=== PATIENT | male | born 1965 | race Caucasian/White ===

== ENCOUNTER 2019-06-12 07:40 | Day surgery (SDC) | payer OTHER ==
[2019-06-11 10:54] VITALS: BMI 35.9
[~2019-06-12 07:40] MED LIST: LACTATED RINGERS 1,000 ML IV SCH
[2019-06-12 07:58] VITALS: TEMP 97.1
[2019-06-12] MEDS ORDERED: LIDOCAINE 1% 20 ML VIAL (10MG/ML) FOR IV START INTRADERMA ONE (08:02)
[2019-06-12] MEDS ORDERED: PROPOFOL 10 MG/ML 20 ML VIAL IV ONE (08:35)
--- NOTE | 2019-06-12 08:47 | P.GSHP ---
History of Present Illness H&P Date: 06/12/19 Chief Complaint: screening colonoscopy this a 53-year-old male who presents today for screening colonoscopy. Patient denies any significant GI complaints. Past Medical History Past Medical History: Hypertension, Thyroid Disorder Additional Past Medical History / Comment(s): PAST HX POLYPS History of Any Multi-Drug Resistant Organisms: None Reported Past Surgical History: Orthopedic Surgery Additional Past Surgical History / Comment(s): COLONOSCOPY W/5 POLYPS REMOVED,RT ROTATOR CUFF REPAIR Past Anesthesia/Blood Transfusion Reactions: No Reported Reaction Smoking Status: Never smoker Medications and Allergies Home Medications Medication Instructions Recorded Confirmed Type Levothyroxine Sodium [Synthroid] 75 mcg PO DAILY 09/08/14 06/12/19 History Magnesium Oxide [Mag-Ox] 400 mg PO DAILY 09/08/14 06/12/19 History Losartan Potassium [Cozaar] 50 mg PO DAILY 06/11/19 06/12/19 History Allergies Allergy/AdvReac Type Severity Reaction Status Date / Time No Known Allergies Allergy Verified 06/11/19 10:51 Surgical - Exam Vital Signs Temp Pulse Resp BP Pulse Ox 97.1 F L 74 16 147/91 95 06/12/19 07:51 06/12/19 07:51 06/12/19 07:51 06/12/19 07:51 06/12/19 07:51 - General well developed, well nourished, no distress - Eyes PERRL - ENT normal pinna - Neck no masses - Respiratory normal expansion - Cardiovascular Rhythm: regular - Abdomen Abdomen: soft, non tender Assessment and Plan Assessment: we'll perform screening colonoscopy
--- NOTE | 2019-06-12 08:57 | P.OP ---
Date of Procedure: 06/12/19 Preoperative Diagnosis: screening colonoscopy Postoperative Diagnosis: normal colon Procedure(s) Performed: colonoscopy Anesthesia: MAC Surgeon: Simba Evans Pathology: none sent Condition: stable Disposition: PACU Description of Procedure: PROCEDURE: The patient was placed on the endoscopy table in the lateral position. Digital rectal examination was performed which revealed no abnormalities. The prostate was symmetrical without nodules. Flexible colonoscope was then placed in the patient's anus and passed throughout the entire colon. The ileocecal valve was visualized. The cecum, ascending, transverse, descending and sigmoid colon were normal. The rectum was normal as well. There were no masses, polyps or diverticula noted in the entire colon. SUMMARY OF FINDINGS: Normal colonoscopy.
[2019-06-12 09:14] VITALS: BP 126/85; PULSE 71; RESP 20
== END 2019-06-12 09:44 | disposition home or self-care (01) ==
LOC: ORWHC2ENDO 07:40
PROVIDERS: ATTEND Surgery
DX: Z12.11 Encounter for screening for malignant neoplasm of colon (principal); I10 Essential (primary) hypertension; E07.9 Disorder of thyroid, unspecified; Z86.010 Personal history of colon polyps; Z98.890 Other specified postprocedural states; Z79.890 Hormone replacement therapy; Z79.899 Other long term (current) drug therapy
CPT/HCPCS: J2704; G0105; 45378

== ENCOUNTER 2021-11-24 20:48 | Emergency (ER) | payer OTHER ==
[2021-11-24] MEDS ORDERED: FLUORESCEIN STRIPS 1 MG STRIP RIGHT EYE ONE (21:58)
[2021-11-24] MEDS ORDERED: PROPARACAINE 0.5% OPHTH DROPS 15 ML BTL RIGHT EYE STA (21:59)
[2021-11-24] MEDS ORDERED: POLYMYXIN B-TRIMETHOPRIM SULF (10,000-1) OPHTH DROPS 10 ML BTL RIGHT EYE STA (22:00)
--- NOTE | 2021-11-24 22:23 | ED ---
Eye Problem HPI - General Chief complaint: Eye Problems Stated complaint: foreign object in R eye Time Seen by Provider: 11/24/21 21:47 Source: patient Mode of arrival: ambulatory Limitations: no limitations - History of Present Illness Initial comments: Patient is a 56-year-old male who presents with concern for eye infection. Patient states he has had congestion throughout the week and took a nap today. He woke up to his right eye was crusted shut. Patient states he has had continuous green drainage from the eye throughout the day. He denies eye pain however does feel intermittent foreign body sensation. Admits to pruritis. Deneis contact use. Denies symptoms in left eye, blurred vision, and double vision. Denies history of seasonal allergies. - Related Data Home Medications Medication Instructions Recorded Confirmed Levothyroxine Sodium [Synthroid] 75 mcg PO DAILY 09/08/14 06/12/19 Magnesium Oxide [Mag-Ox] 400 mg PO DAILY 09/08/14 06/12/19 Losartan Potassium [Cozaar] 50 mg PO DAILY 06/11/19 06/12/19 Allergies Allergy/AdvReac Type Severity Reaction Status Date / Time No Known Allergies Allergy Verified 06/11/19 10:51 Review of Systems ROS Statement: Those systems with pertinent positive or pertinent negative responses have been documented in the HPI. ROS Other: All systems not noted in ROS Statement are negative. Past Medical History Past Medical History: Hypertension, Thyroid Disorder Additional Past Medical History / Comment(s): PAST HX POLYPS History of Any Multi-Drug Resistant Organisms: None Reported Past Surgical History: Orthopedic Surgery Additional Past Surgical History / Comment(s): COLONOSCOPY W/5 POLYPS REMOVED,RT ROTATOR CUFF REPAIR Past Anesthesia/Blood Transfusion Reactions: No Reported Reaction Past Psychological History: No Psychological Hx Reported Smoking Status: Never smoker Past Alcohol Use History: Occasional Past Drug Use History: None Reported General Exam Limitations: no limitations General appearance: alert, in no apparent distress Eye exam: Present: PERRL, EOMI, conjunctival injection. Absent: normal appearance (crusting and copious green discharge), scleral icterus, periorbital swelling, periorbital tenderness ENT exam: Present: normal oropharynx Respiratory exam: Present: normal lung sounds bilaterally. Absent: respiratory distress, wheezes, rales, rhonchi, stridor Cardiovascular Exam: Present: regular rate, normal rhythm, normal heart sounds. Absent: systolic murmur, diastolic murmur, rubs, gallop, clicks GI/Abdominal exam: Present: soft, normal bowel sounds. Absent: distended, tenderness, guarding, rebound, rigid Psychiatric exam: Present: normal affect, normal mood Skin exam: Present: warm, dry, intact, normal color. Absent: rash Course Vital Signs 11/24/21 11/24/21 21:00 22:27 Temperature 99.1 F 98.3 F Pulse Rate 92 78 Respiratory 18 20 Rate Blood Pressure 158/93 142/84 O2 Sat by Pulse 98 98 Oximetry Medical Decision Making - Medical Decision Making This is a 56-year-old male who presents with concern for right eye infection. The right eye is red with crusting and copious green discharge, resembling classic bacterial conjunctivitis. PERRL. There is no swelling, erythema, or tenderness between the medial canthus and nasal bridge to suggest dacryocystitis. Because patient has foreign body sensation I did perform palmer lamp exam which did not reveal foreign body, abrasion, or ulcer. Patient will be discharged with polymyxin B drops for bacterial conjunctivitis. First child was given in the emergency department. Conjunctivitis hygiene education was provided in detail. Return parameters discussed. Patient verbalizes understanding and is agreeable to this plan. Dr. Almanzar is my attending. Disposition Clinical Impression: Bacterial conjunctivitis Disposition: HOME SELF-CARE Condition: Good Instructions (If sedation given, give patient instructions): Conjunctivitis (ED) Additional Instructions: Please use 1 antibiotic drop every 3 hours while awake. Wash your hands each time you touch near your eye as bacterial conjunctivitis is very contagious. Do not share towels or pillowcases. You may treat the other eye if it becomes infected. Follow-up with primary care provider in one to 2 days. Return to the emergency department if you experience new, concerning, or worsening symptoms. Is patient prescribed a controlled substance at d/c from ED?: No Referrals: Maribell Flaherty DO [Primary Care Provider] - 1-2 days Time of Disposition: 22:23
[2021-11-24 22:29] VITALS: BP 142/84; PULSE 78; RESP 20; TEMP 98.3
== END 2021-11-24 22:36 | disposition home or self-care (01) ==
LOC: EC 20:48
DX: H10.89 Other conjunctivitis (principal); I10 Essential (primary) hypertension; E07.9 Disorder of thyroid, unspecified; Z79.899 Other long term (current) drug therapy; Z79.890 Hormone replacement therapy
CPT/HCPCS: 99283

== ENCOUNTER → 2024-01-31 | Outpatient (CLI) | payer OTHER ==
--- NOTE | 2024-02-26 13:41 | XR ---
Site ID [facility] Patient Ad Chinchilla Z ID [id number] 1965 Age/Gender: 58Y, M Order # [id number] Procedure XR Hip Complete LT Date 01/31/2024 8:50:00 AM Reason LEFT HIP PAIN EXAMINATION TYPE: XR Hip Complete LT DATE OF EXAM: 01/31/2024 INDICATION: Patient age:Male; 58 years old; Reason for study: LEFT HIP PAIN; [facility]. COMPARISON: None, please note PACS Production downtime occurred during the radiologist interpretation of these images with limited priors/reports. TECHNIQUE: The left hip was examined in the frontal and lateral projections . FINDINGS: No evidence of any acute osseous pathology, joint dislocation, or soft tissue swelling. Sup erior joint space narrowing with marginal spurring of the left hip. Spurring along the greater lesser trochanters. Fusion changes involving the inferior aspect of the visualized left SI joint. IMPRESSION: 1. No acute osseous pathology. 2. Moderate osteoarthritic change of the left hip.
== END | disposition home or self-care (01) ==
LOC: RADXRMAIN 08:44
PROVIDERS: ATTEND Family Medicine
DX: M16.12 Unilateral primary osteoarthritis, left hip (principal)
CPT/HCPCS: 73502

== ENCOUNTER → 2024-08-14 | Outpatient (CLI) | payer OTHER | END | disposition home or self-care (01) | LOC: LABPAT 07:33 | PROVIDERS: ATTEND Orthopaedic Surgery | DX: Z01.812 Encounter for preprocedural laboratory examination (principal); M17.12 Unilateral primary osteoarthritis, left knee | CPT/HCPCS: 86850; 86900; 86901 ==

== ENCOUNTER 2024-08-24 05:43 | Day surgery (SDC) | payer OTHER ==
[2024-08-19 15:00] VITALS: BMI 35.3
[~2024-08-24 05:43] MED LIST changes: -LACTATED RINGERS 1,000 ML IV SCH; +TRANEXAMIC 1,000 MG/100ML-NACL 1,000 MG in SALINE 1 100ML.BAG IVPB PRN
[2024-08-24] MEDS: LACTATED RINGERS 1,000 ML IV ONE ×2 (06:22→09:39)
[2024-08-24] MEDS ORDERED: HYDROmorphone 0.5 MG/0.5 ML SYRINGE IVP PRN ×3 (07:00→09:47)
[2024-08-24] MEDS: ACETAMINOPHEN TAB 500 MG TAB PO PRN (07:09)
[2024-08-24] MEDS: MELOXICAM 7.5 MG TAB PO PRN (07:09)
[2024-08-24] MEDS: ONDANSETRON 4 MG/2 ML VIAL IVP ONE (07:10)
[2024-08-24] MEDS: LACTATED RINGERS 1,000 ML IV SCH (07:10)
[2024-08-24] MEDS: DEXAMETHASONE SOD PHOSPHATE 4 MG/ML 1 ML VIAL IV ONE (07:10)
[2024-08-24] MEDS ORDERED: fentaNYL (PF) 50 MCG/ML 2 ML AMP IVP STA (07:15)
[2024-08-24] MEDS: MIDAZOLAM 2 MG/2 ML VIAL IV STA (07:16)
[2024-08-24] MEDS: fentaNYL (PF) 50 MCG/ML 2 ML AMP IVP STA ×2 (07:16)
[2024-08-24] MEDS ORDERED: GLYCOPYRROLATE 0.2 MG/ML 2 ML VIAL ONE (07:33)
[2024-08-24] MEDS ORDERED: LIDOCAINE 1% INJ 10MG/ML (20 ML MDV) ONE (07:33)
[2024-08-24] MEDS ORDERED: NEOSTIGMINE 1 MG/ML 10 ML VIAL ONE (07:33)
[2024-08-24] MEDS ORDERED: SUCCINYLCHOLINE CHLORIDE 200 MG/10 ML VIAL IV ONE (07:33)
[2024-08-24] MEDS ORDERED: ROCURONIUM 10 MG/ML (5 ML VIAL) IV ONE (07:33)
[2024-08-24] MEDS ORDERED: ROPIVACAINE 5 MG/ML 30 ML VIAL ONE (07:33)
[2024-08-24] MEDS ORDERED: TRANEXAMIC 1,000 MG/100ML-NACL PREMIX BAG ONE (07:33)
[2024-08-24] MEDS ORDERED: fentaNYL (PF) 50 MCG/ML 2 ML AMP ONE (07:33)
[2024-08-24] MEDS ORDERED: HYDROmorphone (PF) 1 MG/ML ONE (07:33)
[2024-08-24] MEDS ORDERED: PROPOFOL 10 MG/ML 20 ML VIAL IV ONE (07:33)
[2024-08-24] MEDS ORDERED: DEXAMETHASONE SOD PHOSPHATE 4 MG/ML 1 ML VIAL ONE (07:33)
[2024-08-24] MEDS: ceFAZolin 3 GM in SODIUM CHLORIDE 0.9% 100 ML IVPB PRN (07:38)
--- NOTE | 2024-08-24 08:17 | HP ---
HISTORY AND PHYSICAL Surgery scheduled for 08/24/2024. HISTORY OF PRESENT ILLNESS: Ad Sauceda is a 58-year-old gentleman, seen with symptomatic left hip osteoarthritis. After having treatment options discussed, he elected to proceed with direct anterior left total hip arthroplasty. Consent regarding the procedure was obtained. PAST MEDICAL HISTORY: Hyperlipidemia, hypothyroidism. PAST SURGICAL HISTORY: Shoulder arthroscopy, vasectomy. DAILY MEDICATIONS: 1. Levothyroxine. 2. Potassium. 3. Rosuvastatin. ALLERGIES: None. SOCIAL HISTORY: Denies tobacco use. PHYSICAL EVALUATION OF THE LEFT HIP: There is limited range of motion with severe pain. Positive hip impingement sign. Straight-leg raise is negative. Distal neurovascular exam is intact. IMAGING STUDIES: Radiographs of the left hip reveal severe osteoarthritic changes. IMPRESSION: 1. Left hip osteoarthritis. 2. Hyperlipidemia. 3. Hypothyroidism. PLAN: Direct anterior left total hip arthroplasty. MMODL / IJN: [id number] /
--- NOTE | 2024-08-24 09:35 | FL ---
Fluoroscopy History: LEFT ANTERIOR HIP Fluoroscopy utilized for left anterior hip [facility], , 08/24/2024 9:33 AM
[2024-08-24] MEDS ORDERED: HYDROmorphone 1 MG/ML 1 ML SYRINGE IVP PRN (09:47)
[2024-08-24] MEDS ORDERED: LACTATED RINGERS 1,000 ML IV ONE (09:47)
[2024-08-24] MEDS ORDERED: NALOXONE 0.4 MG/ML 1 ML VIAL IV PRN (09:47)
[2024-08-24] MEDS ORDERED: ONDANSETRON 4 MG/2 ML VIAL IVP PRN (09:47)
[2024-08-24] MEDS ORDERED: HYDROcodone/APAP 5-325MG 1 EACH TAB PO PRN (09:47)
--- NOTE | 2024-08-24 09:47 | P.OP ---
Date of Procedure: 08/24/24 Preoperative Diagnosis: Left hip osteoarthritis Postoperative Diagnosis: Left hip osteoarthritis Procedure(s) Performed: Direct anterior left total hip arthroplasty Implants: 1. DePuy [place] 135 degree standard collar KA size 13 press-fit femoral stem 2. DePuy [place] 60 mm press-fit acetabular shell 3. DePuy [place] +4 neutral polyethylene acetabular liner 36 mm ID 60 mm OD 4. Biolox delta ceramic femoral head +1 36 mm Anesthesia: GETA, regional (Erector spinae block) Surgeon: Gab Shields Quality Reviewer #1: Fred Mayes Estimated Blood Loss (ml): 50 Pathology: none sent Condition: stable Disposition: PACU Indications for Procedure: 58-year-old patient seen with symptomatic left hip osteoarthritis. After having treatment options discussed, he elected to proceed with direct anterior left total hip arthroplasty. Operative Findings: See description of procedure Description of Procedure: The patient was taken to the operative suite. Patient underwent a general anesthetic by the department of anesthesia. Patient was then transferred to the Cutler table. Patient was given preoperative IV antibiotics and TXA. Both lower extremities were placed in standard leg spars. The hip was then prepped and draped in the normal sterile orthopedic fashion. A standard anterior incision was made beginning 3 cm lateral and 1 cm distal to the ASIS extending 10 cm. Dissection was then carried down through the subcutaneous soft tissues down to the fascia overlying the tensor fascia nika. An incision was now made through the fascia. Careful dissection was taken down exposing the tensor fascia nika muscle. A Cobra retractor was now placed along the medial femoral neck and a second one along the lateral femoral neck. The venous circumflex vessels were now identified, cauterized and clipped. We identified the anterior hip capsule. An incision was made through the hip capsule along the lateral border. I performed a partial anterior capsulectomy. Retractors were now placed around the femoral neck itself. A femoral neck cut was now made with a sagittal saw. It was completed with an osteotome at the lateral neck area. The femoral head was now removed without difficulty. The extremity was now rotated to 45 of external rotation. It was locked in position. Residual labrum was now debrided out. Serial reaming was performed of the acetabulum while Wili NOLEN assisted holding an anterior retractor for exposure. Once we reached the appropriate size and a trial was position and fit nicely. The appropriate size was now chosen opened and made available. It was introduced into the acetabulum without difficulty. The C-arm/fluoroscopy was now brought into the operative field. We made sure we had a true AP pelvic view. We now under direct C- arm/fluoroscopy introduced into the acetabular component with appropriate version and inclination. I held the cup in appropriate position well Wili NOLEN used a mallet to seat the acetabular component. I noted the component now to be well seated and stable. Acetabular cup introduce her was removed. The C-arm was pulled back. An appropriate liner was introduced and clicked into position. It was felt to be stable. At this point retractors were removed. The extremity was now placed into 120 external rotation with no traction. The leg was now dropped to the ground and adducted. Appropriate retractors were now positioned along the proximal femur. We also placed our femoral look into position. Additional capsular releasing was performed to gain access to the proximal femur. We now used a box osteotome. A canal finder was now utilized. Serial broaching was now performed with the assistance of Wili NOLEN tapping the broaches down with a mallet while held the broach in appropriate rotation and position. This was done until we reached the appropriate size with good overall rotational stability. Appropriate calcar planing was performed. A trial head/neck was placed into position. The hip was now reduced. The C- arm/fluoroscopy was brought back into the operative field. I obtained AP pelvis which demonstrated adequate leg length alignment. The trial components appeared adequately sized and positioned. The C-arm/fluoroscopy was pulled back. Retractors were repositioned and the hip was dislocated. The leg was again taken down to the ground and adducted. Appropriate retractors were repositioned as well as the femoral hook. All trial components were removed. The femoral implant was opened along with the femoral head. The femoral implant was introduced on the appropriate handle into our pre-broached area. I held the component position well Wili NOLEN used a mallet to seat the femoral component. The femoral component was now noted to be well seated and stable.. The femoral head was introduced with good positioning and fixation noted. Retractors were now removed. The hip was now reduced. There appeared be good positioning of the hip confirmed on intraoperative fluoroscopy. Spot films were obtained to document this. A second gram of TXA was given. The deep and superficial soft tissues were infiltrated with local analgesic. Bipolar cautery had been utilized intermittently through the procedure for hemostasis. The wound was irrigated copiously with pulse lavage mechanical irrigation. The fascia was repaired with Vicryl suture. The subcutaneous soft tissues were repaired in layers with Vicryl suture. The skin was approximated with pernio/Dermabond. Sterile dressings were applied. Patient was then awakened, transferred to a bed and taken to recovery in stable condition. Wili NOLEN assisted with the complex procedure.
--- NOTE | 2024-08-24 09:58 | P.ANPRN ---
Procedure Note - Anesthesia - Nerve Block Performed Left Shilo Single Time Out Performed: Yes ([id number]) Date of Procedure: 08/24/24 Procedure Start Time: 07:16 Procedure Stop Time: 07:20 Location of Patient: PreOp Indication: Acute Post-Operative Pain, Requested by Surgeon Specifically requested for management of pain by DrYariel: Gab Shields Sedation Type: Sedate with meaningful contact maintained Preparation: Sterile Prep Position: Supine Catheter: None Needle Types: Pajunk Needle Gauge: 21 Ultrasound used to visualize needle placement: Yes Ultrasound used to observe medication spread: Yes Injectate: 0.5% Ropivacaine (see comment for volume) (30cc) Blood Aspirated: No Pain Paresthesia on Injection Noted: No Resistance on Injection: Normal Image Stored and Saved: Yes Events: Uneventful and Well Tolerated
[2024-08-24 10:00] VITALS: TEMP 97.2
--- NOTE | 2024-08-24 10:40 | XR ---
Fluoroscopy History: LEFT ANTERIOR HIP LEFT ANTERIOR HIP REPLACEMENT. FL TIME 12 SECONDS. DAP 2.0015. [facility], , 08/24/2024 10:37 AM
[2024-08-24] MEDS: HYDROcodone/APAP 7.5-325MG 1 EACH TAB PO PRN (11:27)
[2024-08-24 12:50] VITALS: RESP 18
[2024-08-24 14:35] VITALS: BP 142/91; PULSE 89
== END 2024-08-24 14:29 | disposition home health service (06) ==
LOC: OR 05:43
PROVIDERS: ATTEND Orthopaedic Surgery
DX: M16.12 Unilateral primary osteoarthritis, left hip (principal); G89.18 Other acute postprocedural pain; Z96.642 Presence of left artificial hip joint; E03.9 Hypothyroidism, unspecified; E78.5 Hyperlipidemia, unspecified
CPT/HCPCS: 27130; 97161; 64999; 73501; C1776; J2250; J0330; J1100; J2710; J0690; J2405; J2003; J3010; J1171; J2795; J2704; J1596